=== PATIENT | male | born 1960 | race American Indian/Alaskan Native ===

== ENCOUNTER 2018-04-14 19:17 | Emergency (ER) | payer OTHER, MEDICAID ==
[2018-04-14] MEDS ORDERED: Naproxen 550 mg Tab PO STA (19:49)
[2018-04-14 20:05] VITALS: PULSE 62
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
[2018-04-14 20:57] VITALS: BP 131/62; RESP 16; O2SAT 99
--- NOTE | 2018-04-15 17:56 | RAD ---
Date of service: 04/14/2018 PROCEDURE: Left Knee Radiographs. HISTORY: Pain. COMPARISON: None. FINDINGS: BONES: Normal. No fracture. JOINTS: Normal. No osteoarthritis. JOINT EFFUSION: None. OTHER FINDINGS: None. IMPRESSION: No evidence of acute fracture or dislocation.
--- NOTE | 2018-04-15 17:57 | RAD ---
Date of service: 04/14/2018 PROCEDURE: Radiographs of the left tibia and fibula. HISTORY: pain COMPARISON: None available. TECHNIQUE: Frontal and lateral views obtained. FINDINGS: BONES: No fracture or destructive lesion. JOINT SPACES: Unremarkable. OTHER FINDINGS: None. IMPRESSION: No evidence of acute fracture or dislocation.
== END 2018-04-14 20:53 | disposition home or self-care (01) ==
LOC: MERGE 19:17 → ED 19:17
DX: S80.12XA Contusion of left lower leg, initial encounter (principal); V19.9XXA Pedal cyclist (driver) (passenger) injured in unspecified traffic accident, initial encounter; Y93.55 Activity, bike riding